=== PATIENT | female | born 1995 | race Two or more races ===

== ENCOUNTER 2019-11-27 02:59 | Inpatient (IN) | payer OTHER ==
[~2019-11-27] VITALS: Ht 165.1 cm; Wt 79.5 kg
[2019-11-27] MEDS ORDERED: ONDANSETRON HCL 4 MG/2 ML VIAL IVP PRN (04:45)
[2019-11-27] MEDS ORDERED: ACETAMINOPHEN 325 MG TABLET PO PRN (04:45)
[2019-11-27] MEDS ORDERED: 0.9% SODIUM CHLORIDE 10 ML SYRINGE IVP PRN (04:45)
[2019-11-27] MEDS ORDERED: BACITRACIN 0.9 GM PACKET OINTMENT TP ONE (04:45)
[2019-11-27] MEDS ORDERED: MIRT-89 PO (04:49)
[2019-11-27 04:55] LABS: BASOPHILS % (AUTO) 0.5 % (0.0-2.0); EOSINOPHILS % (AUTO) 1.7 % (1.0-6.0); HEMATOCRIT 37.9 % (36-46); HEMOGLOBIN 12.5 g/dL (12.0-16.0); LYMPHOCYTES # (AUTO) 2.9 K/uL (1.0-4.8); LYMPHOCYTES % (AUTO) 42.1 % (22.0-44.0); MEAN CORPUSCULAR HEMOGLOBIN 28.4 pg (26.0-34.0); MEAN CORPUSCULAR HGB CONC 32.9 G/dL (31.0-37.0); MEAN CORPUSCULAR VOLUME 86 fL (80-100); MONOCYTES # (AUTO) 0.5 K/uL (0.1-1.0); MONOCYTES % (AUTO) 7.9 % (2.0-9.0); NEUTROPHILS # (AUTO) 3.3 K/uL (1.8-7.7); NEUTROPHILS % (AUTO) 47.8 % (40.0-70.0); PLATELET COUNT (AUTO) 153 K/uL (150-450); RED CELL DISTRIBUTION WIDTH 14.1 % (11.5-14.5)
[2019-11-27 05:06] LABS: ANION GAP 6 mmol/L (8-16); CALCIUM, TOTAL 9.5 mg/dL (8.8-10.5); CARBON DIOXIDE 28 mmol/L (22-29); CHLORIDE 105 mmol/L (98-107); CREATININE 0.89 mg/dL (0.60-1.30); GLOMERULAR FILTR. RATE CALC > 60 mL/min (>60); GLUCOSE,RANDOM 97 mg/dL (70-110); POTASSIUM 3.7 mmol/L (3.5-5.1); SODIUM SERUM 139 mmol/L (136-145); UREA NITROGEN, BLOOD 9 mg/dL (7-18)
[2019-11-27 05:13] LABS: SALICYLATE < 2.8 mg/dL (2.8-20.0)
[2019-11-27 05:21] LABS: ACETAMINOPHEN < 2 mcg/mL (10-30); HCG,QUANTITATIVE < 1 mIU/mL (0-6)
[2019-11-27] MEDS ORDERED: MAGNESIUM HYDROXIDE SUSPENSION 30 ML UDCUP PO PRN (08:30)
[2019-11-27 09:29] VITALS: BP 112/72
[2019-11-27 19:50] VITALS: BP 102/54
[2019-11-27] MEDS: ACETAMINOPHEN 325 MG TABLET PO PRN (22:15)
[2019-11-28 04:20] VITALS: BP 110/61
[2019-11-28 08:30] VITALS: BP 104/56
[2019-11-28 13:49] LABS: APPEARANCE,URINE TURBID (CLEAR); BILIRUBIN,URINE NEGATIVE (NEGATIVE); GLUCOSE, URINE (UA) NEGATIVE (NEGATIVE); KETONES,URINE NEGATIVE (NEGATIVE); NITRATE,URINE NEGATIVE (NEGATIVE); OCCULT BLOOD,URINE NEGATIVE (NEGATIVE); PROTEIN,URINE NEGATIVE (NEGATIVE); UROBILINOGEN,URINE 0.2 mg/dL (<=1.0)
[2019-11-28 13:56] LABS: AMPHET/METH SCREEN,URINE NEGATIVE (NEGATIVE); BARBITURATE SCREEN, URINE NEGATIVE (NEGATIVE); BENZODIAZEPINES SCREEN,URINE NEGATIVE (NEGATIVE); CANNABINOID SCREEN,URINE POSITIVE (NEGATIVE); COCAINE SCREEN,URINE NEGATIVE (NEGATIVE); METHADONE SCREEN, URINE NEGATIVE (NEGATIVE); OPIATE SCREEN,URINE NEGATIVE (NEGATIVE)
[2019-11-28 13:59] LABS: PHENCYCLIDINE SCREEN,URINE NEGATIVE (NEGATIVE)
[2019-11-28 14:07] LABS: LEUKOCYTE ESTERASE ,URINE SMALL (NEGATIVE)
[2019-11-28 14:08] LABS: AMORPHOUS SEDIMENT,UR Many /LPF (None Seen); BACTERIA,URINE None Seen /HPF (None Seen); RBC,URINE None Seen /HPF (0-2); TRIPLE PHOSPHATE CRYSTAL,UR Few /LPF (None Seen)
[2019-11-28 15:45] VITALS: BP 109/62
[2019-11-28 19:00] VITALS: BP 106/53
[2019-11-28] MEDS: ACETAMINOPHEN 325 MG TABLET PO PRN (23:49)
[2019-11-29 04:45] VITALS: BP 97/58
[2019-11-29] MEDS: ACETAMINOPHEN 325 MG TABLET PO PRN ×2 (06:55→19:46)
[2019-11-29 08:23] VITALS: BP 96/46
[2019-11-29 19:00] VITALS: BP 109/53
[2019-11-30 08:15] VITALS: BP 109/55
== END 2019-11-30 14:20 | DRG 881 ==
LOC: EMS 02:59 → 6N 04:00 → UNDODISIN 11-30 14:20
PROVIDERS: ADMIT Internal Medicine; ATTEND Internal Medicine
DX: F32.9 Major depressive disorder, single episode, unspecified (principal); R45.851 Suicidal ideations; M79.642 Pain in left hand; X99.8XXA Assault by other sharp object, initial encounter; S50.812A Abrasion of left forearm, initial encounter; Y93.89 Activity, other specified; Y99.8 Other external cause status
CPT/HCPCS: G0480; G0481

== ENCOUNTER 2020-02-25 16:28 | Emergency (ER) | payer OTHER ==
[~2020-02-25] VITALS: Ht 165.1 cm; Wt 84.1 kg
[~2020-02-25 16:28] MED LIST: MIRT-89 PO
[2020-02-25 17:01] VITALS: BP 113/74
[2020-02-25 17:21] LABS: COVID AG,FIA SOURCE NASOPHARYNGEAL
== END 2020-02-25 19:33 | disposition home or self-care (01) ==
LOC: EMS 16:29
DX: Z20.828 Contact with and (suspected) exposure to other viral communicable diseases (principal); F17.200 Nicotine dependence, unspecified, uncomplicated; F32.9 Major depressive disorder, single episode, unspecified; F12.90 Cannabis use, unspecified, uncomplicated
CPT/HCPCS: 87426

== ENCOUNTER 2025-01-04 20:18 | Emergency (ER) | payer OTHER ==
[~2025-01-04] VITALS: Ht 167.6 cm; Wt 81.8 kg
[2025-01-04 20:26] VITALS: BP 124/75; TEMP 98.6
[2025-01-04 21:25] LABS: COVID AG,FIA SOURCE NASAL SWAB
[2025-01-04 21:25] LABS: PLATELET COUNT (AUTO) 181 K/uL (150-450); RED BLOOD CELL COUNT(AUTO) 4.32 MIL/uL (4.00-5.20); RED CELL DISTRIBUTION WIDTH 14.2 % (11.5-14.5); WHITE BLOOD COUNT (AUTO) 5.3 K/uL (4.5-11.0)
[2025-01-04 21:29] LABS: APPEARANCE,URINE TURBID (CLEAR); GLUCOSE, URINE (UA) NEGATIVE (NEGATIVE); LEUKOCYTE ESTERASE ,URINE SMALL (NEGATIVE); NITRATE,URINE NEGATIVE (NEGATIVE); OCCULT BLOOD,URINE NEGATIVE (NEGATIVE); SPECIFIC GRAVITIY, URINE 1.020 (1.003-1.030)
[2025-01-04 21:35] LABS: CALCIUM, TOTAL 8.9 mg/dL (8.8-10.5); CREATININE 0.98 mg/dL (0.60-1.30); GLOMERULAR FILTR. RATE CALC > 60 mL/min (>60); GLUCOSE,RANDOM 89 mg/dL (70-110); SODIUM SERUM 141 mmol/L (136-145); UREA NITROGEN, BLOOD 15 mg/dL (7-18)
[2025-01-04 21:42] LABS: AMORPHOUS SEDIMENT,UR Moderate /LPF (None Seen); SQUAMOUS EPITHELIAL CELL,UR Few /LPF (None Seen)
[2025-01-04 21:45] LABS: TROPONIN I-HIGH SENSITIVITY 5 ng/L (<51)
[2025-01-04 21:46] LABS: INFLUENZA TYPE A NEGATIVE FOR TYPE A (NEGATIVE); INFLUENZA TYPE B NEGATIVE FOR TYPE B (NEGATIVE); SARS-COV2 (COVID) ANTIGEN,FIA Negative (Negative)
[2025-01-04 21:48] LABS: HCG,QUANTITATIVE < 1 mIU/mL (0-6)
[2025-01-04 22:20] VITALS: PULSE 78; PULSE 79; RESP 18; O2SAT 97
[2025-01-04] MEDS: ALBUTEROL SULFATE HFA 90 MCG/PUFF 8 GM INHALER IH ONE (22:23)
[2025-01-04] MEDS: BENZONATATE 100 MG CAPSULE PO ONE (22:24)
[2025-01-04] MEDS: ACETAMINOPHEN 500 MG TABLET PO ONE (22:24)
[2025-01-04] MEDS: IBUPROFEN 400 MG TABLET PO ONE (22:24)
[2025-01-04] MEDS ORDERED: BENZ-227 PO (22:35)
[2025-01-04] MEDS ORDERED: DEXA4 PO (22:35)
== END 2025-01-04 23:16 | disposition home or self-care (01) ==
LOC: EMS 20:24
DX: J06.9 Acute upper respiratory infection, unspecified (principal); R07.1 Chest pain on breathing; R05.9 Cough, unspecified; B97.89 Other viral agents as the cause of diseases classified elsewhere; F32.A Depression, unspecified; F41.9 Anxiety disorder, unspecified; N89.8 Other specified noninflammatory disorders of vagina; J45.909 Unspecified asthma, uncomplicated; F12.90 Cannabis use, unspecified, uncomplicated; Z79.899 Other long term (current) drug therapy; Z20.822 Contact with and (suspected) exposure to COVID-19
CPT/HCPCS: 99285; 71045; 87426; 80048; 81001; 83880; 84484; 84702; 85025; 87086; 87804; 36415; 94640; 93005; J8540; J3535